=== PATIENT | male | born 1970 | race Two or more races ===

== ENCOUNTER 2017-01-19 12:27 | Day surgery (SDC) | payer MEDICAID ==
[~2017-01-19 12:27] MED LIST: ACETAMINOPHEN 0 ML IV ONE; DEXMEDETOMIDINE INJ 80 MCG/20 ML VIAL IV ONE; FENTANYL CITRATE INJ/PF 100 MCG/2 ML AMPUL ONE; LACTATED RINGERS 1000 ML IV PRN; LIDOCAINE 0.5% INJ-PF (5 MG/ML) 50 ML SDV SUBCUT PRN; MIDAZOLAM 2 MG/2 ML INJ ONE; PROPOFOL INJ 200 MG/20 ML VIAL IV ONE; SUCCINYLCHOLINE CHLORIDE INJ 200 MG/10 ML VIAL ONE
[2017-01-19] MEDS ORDERED: LIDOCAINE 2%/EPINEPHRINE INJ 1.7 ML CARTRIDGE ONE (13:17)
[2017-01-19] MEDS ORDERED: BUPIVACAINE HCL 0.5%/EPI 1:200000 INJ 1.8 ML CARTRIDGE ONE ×2 (13:18→14:48)
[2017-01-19] MEDS ORDERED: PROPOFOL INJ 200 MG/20 ML VIAL IV ONE (13:24)
[2017-01-19] MEDS ORDERED: FENTANYL CITRATE INJ/PF 100 MCG/2 ML AMPUL ONE ×2 (13:24→15:49)
[2017-01-19] MEDS ORDERED: MIDAZOLAM 2 MG/2 ML INJ ONE (13:24)
[2017-01-19] MEDS ORDERED: LIDOCAINE 2% INJ-PF (20 MG/ML) 10 ML AMPUL ONE (13:24)
[2017-01-19] MEDS ORDERED: IBUPROFEN INJ 800 MG/8 ML VIAL IV ONE (13:24)
[2017-01-19] MEDS ORDERED: DEXAMETHASONE SOD PHOSPHATE INJ 4 MG/1 ML VIAL ONE (13:25)
[2017-01-19] MEDS ORDERED: ONDANSETRON HCL INJ/PF 4 MG/2 ML SDV ONE (13:25)
[2017-01-19] MEDS ORDERED: MORPHINE SULFATE 10 MG/ML INJ IV PRN (15:37)
[2017-01-19] MEDS ORDERED: PROMETHAZINE HCL INJ 25 MG/1 ML VIAL IV PRN ×2 (15:37)
[2017-01-19] MEDS ORDERED: FENTANYL CITRATE INJ/PF 100 MCG/2 ML AMPUL IV PRN ×3 (15:37)
[2017-01-19] MEDS ORDERED: MEPERIDINE HCL/PF INJ 25 MG/1 ML DISP.SYRIN IV PRN (15:37)
[2017-01-19] MEDS ORDERED: DIPHENHYDRAMINE HCL 50 MG/ML VIAL IV PRN (15:37)
[2017-01-19] MEDS ORDERED: OXYCODONE-ACETAMINOPHEN 5-325 MG TABLET PO PRN ×3 (15:37→16:06)
[2017-01-19] MEDS ORDERED: ONDANSETRON HCL INJ/PF 4 MG/2 ML SDV IV PRN (15:37)
--- NOTE | 2017-01-19 15:53 | Operative Report ---
Operative Report DATE OF SURGERY: 01/19/17 PREOPERATIVE DIAGNOSIS: Dental caries and periodontitis POSTOPERATIVE DIAGNOSIS: Same OPERATION: Surgical removal of all remaining teeth numbers 1, 2, 3, 5, 6, 11, 14 , 16, 17, 19, 20, 21, 22, 23, 24, 25, 26, 27, 28, 29 and 32 and alveoloplasties of all 4 quadrants SURGEON: GENET LEO ANESTHESIA: GA TISSUE REMOVED OR ALTERED: Teeth which were discarded COMPLICATIONS: None ESTIMATED BLOOD LOSS: 50 mL INTRAOPERATIVE FINDINGS: Grossly decayed and nonrestorable teeth PROCEDURE: The patient was brought into operating room #3 and placed on the operating room table in supine position. General anesthesia was induced via a peripheral IV and continued utilizing nasoendotracheal intubation. The patient was then prepped and draped in the usual fashion for an intraoral procedure. A total of 4 carpules of 2% lidocaine with 1:100,000 epinephrine and 3 carpules of half percent Marcaine with 1:200,000 epinephrine were delivered to the planned surgical sites via both infiltration and nerve block. The oral cavity and oropharynx was suctioned and a moistened oropharyngeal throat pack was placed. Full-thickness mucoperiosteal flaps were then developed. These were via envelope incisions. Ostectomy was completed as needed. The teeth were delivered using elevators and forceps. There was no sinus communication noted. The nerves were not seen and the mandible was intact postoperatively. A bite block was used throughout the procedure. Alveoloplasties were completed using rongeurs and bone files. The sockets were curetted free of any debris and irrigated with normal saline solution. The flaps were reapproximated and sutured using 4-0 chromic gut suture. The oral cavity was again suctioned and found to be free of debris. The throat pack was removed. The oropharynx was suctioned. Gauze packs were placed bilaterally to aid in continued hemostasis. The patient was awakened from general anesthesia, extubated in the operating room and taken recovery room in spontaneous breathing fashion.
[2017-01-19] MEDS ORDERED: OXYCODONE-ACETAMINOPHEN 5-325 MG TABLET ONE (16:39)
[2017-01-19 18:03] VITALS: BP 126/73
== END 2017-01-19 17:50 | disposition home or self-care (01) ==
LOC: OROUT 12:27
PROVIDERS: ATTEND Dentist Oral and Maxillofacial Surgery
PROC: 0CDWXZ1 Extraction of Upper Tooth, Multiple, External Approach (ICD-10-PCS; 2017-01-19)
PROC: 0NQVXZZ Repair Left Mandible, External Approach (ICD-10-PCS; 2017-01-19)
PROC: 0NQTXZZ Repair Right Mandible, External Approach (ICD-10-PCS; 2017-01-19)
PROC: 0NQRXZZ Repair Maxilla, External Approach (ICD-10-PCS; 2017-01-19)
PROC: 0NQSXZZ (ICD-10-PCS; 2017-01-19)
PROC: 0CDXXZ1 Extraction of Lower Tooth, Multiple, External Approach (ICD-10-PCS; principal; 2017-01-19 13:45)
DX: K02.63 Dental caries on smooth surface penetrating into pulp (principal); K05.30 Chronic periodontitis, unspecified; B18.2 Chronic viral hepatitis C; I10 Essential (primary) hypertension; F12.10 Cannabis abuse, uncomplicated; E66.01 Morbid (severe) obesity due to excess calories; F17.210 Nicotine dependence, cigarettes, uncomplicated; D69.59 Other secondary thrombocytopenia; B19.20 Unspecified viral hepatitis C without hepatic coma; Z68.41 Body mass index [BMI] 40.0-44.9, adult; Z79.899 Other long term (current) drug therapy
CPT/HCPCS: 41899; 41874 ×4; J2250; J3490 ×3; J1100; J3010; J0330; J2405; J2704; J1741; 170; J0131